=== PATIENT | female | born 1955 | race Caucasian/White ===

== ENCOUNTER 2023-02-05 09:49 | Emergency (ER) | payer OTHER ==
--- OUTSIDE RECORDS SUMMARY | 2023-02-05 09:55 | XMS REPORT | Continuity of Care Document ---
:1955 Author Organization [facility] t Address [address] [place] [address] [address] [place] [address] Care Team Providers Name Role Phone Dusty Sanches MD Primary Care Physician AMBERLY THOMPSON Attending Clinician Unavailable LAB90 Attending Clinician Unavailable RYLEY_Jeff Attending Clinician Unavailable Referred, Self Attending Clinician Unavailable Amberly Thompson MD Attending Clinician [phone] Angela Duque Attending Clinician Unavailable Valeri Admitting Clinician Unavailable Referred, Self Admitting Clinician Unavailable Angela Duque Admitting Clinician Unavailable Physician, No Primary or Family Admitting Clinician Unavaila ble Payers Payer Name Policy Type Policy Number Effective Date Expiration Date S cherelle [employer] CT PPO 5 [id number] 2021 00:00:00 [employer] (MEDICARE [id number] 2022 REPLACEMENT PPO) 00:00:00 Problems Condition Condition Condition Status Onset Resolution Last Treating Co mments Source Name Details Category Date Date Treatment Clinician Date Prediabete Prediabete Disease Active 2021-12 Essence sahu s 12-09 Seybold 00:00: - 00 Externa l Hyperlipid Hyperlipid Disease Active 2021-12 Essence corea emia 12-09 Seybold 00:00: - 00 Externa l Hypothyroi Hypothyroi Disease Active 2021-12 Essence montalvo dism dism 12-09 Seybold 00:00: - 00 Externa l Primary Primary Disease Active 2021-12 Emilia hypertensi hypertensi 12-09 Se ybold on on 00:00: - 00 Externa l 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 06-01 Se ybold 00:00: - 00 Externa l Alcohol Alcohol Disease Active Emilia abuse abuse 06-01 Seybold 00:00: - 00 Externa l Essential Essential Disease Active [facility] hypertensi hypertensi [facility]-10 [facility]: Hosp[facility] 00 l SOB SOB Disease Active [facility] (shortness (shortness 7-10 st of breath) of breath) 00:00: Ho spita 00 l Allergies, Adverse Reactions, Alerts Allergy Allergy Status Severity Reaction(s) Onset Inactive Treating Comm ents Source Name Type Date Date Clinician Amoxicil Propensi Active Hives Emilia monse ty to 4-27 Seybold adverse 00:00: - reaction 00 Externa s l Amoxicil Propensi Active [facility] monse ty to 7-10 [facility] adverse 00:00: Hospita reaction 00 l s to drug codeine DA Active [facility] [place] [facility] am[facility]il [facility] [place] [facility] codeine DA Active [facility] [place] [facility] amoxicil DA Active [facility] [place] [facility] Family History Family Member Diagnosis Comments Start Date Stop Date Source [facility] mother St[facility] Social History Social Habit Start Date Stop Date Quantity Comments Source History of Current smoker [facility] use [facility] Tobacco use and 2021-06-01 2021-06-01 Smokeless tobacco Ke davidey Seybold - exposure 00:00:00 00:00:00 non-user External Sex [birth year] [facility] 00:00:00 00:00:00 Hospital Smoking Status Start Date Stop Date Source Never smoked tobacco Emilia Seyb old - External Ex-smoker 2018-06-10 00:00:00 2018-06-10 00:00:[address] [facility] Medications Ordered Filled Start Stop Current Ordering Indication Dosage Frequency Signature Comments Components Source Medication Medication Date Date Medication? Clinician (SIG) Name Name PAM ALTMAN Yes Take by Esvin choi VINEGAR OR 3-06 mouth Seybold 13:36: - 59 Externa l Thiamine Yes 250mg Take 250 Kim ey HCl 3-06 mg by Seybold (Vitamin 13:36: mouth - B-1) 250 MG 59 daily Externa oral Tablet l Cyanocobala Yes 1000ug Take 1,000 Emilia min 3-06 mcg by Seybold (Vitamin 13:36: mouth - B-12) 1000 59 daily Externa MCG oral l Tablet Biotin Yes Take by Emilia [id number] MCG 3-06 mouth Seybold oral Tablet 13:36: - 59 Externa l Ascorbic Yes Take by Emilia Acid 3-06 mouth Seybold (Vitamin C) 13:36: - 500 MG oral 59 Externa Capsule l Cholecalcif Yes Take by Esvin choi victor manuel 3-06 mouth Seybold (Vitamin 13:36: - D-3) 25 MCG 59 Externa (1000 UT) l oral Capsule Probiotic Yes Take by Yvonne y Product 3-06 mouth Seybold (PROBIOTIC- 13:36: - 10 OR) 59 Externa l Zinc 50 MG Yes Take by Kim ey oral 3-06 mouth Seybold Capsule 13:36: - 59 Externa l Celecoxib 2022-0 Yes [id number] 200mg Take 1 Emilia (CeleBREX) 3-06 capsule Seybol d 200 MG oral 00:00: (200 mg - Capsule 00 total) by Externa mouth 2 l times daily Gabapentin 2022-0 Yes Emilia 300 MG oral 3-03 Seybold Capsule 00:00: - 00 Externa l Metformin 2022-0 Yes TAKE 1 Emilia HCl 500 MG 2-09 TABLET BY Seyb old oral Tablet 00:00: MOUTH - 00 TWICE A Externa DAY l Simvastatin 2022-0 Yes TAKE 1 Kim ey 20 MG oral 2-09 TABLET BY Seyb old Tablet 00:00: MOUTH - 00 EVERY DAY Externa l Losartan Yes TAKE 1 Emilia Potassium 2-09 TABLET BY Seybo ld (COZAAR) 50 00:00: MOUTH - MG oral 00 EVERY DAY Externa Tablet l Carvedilol Yes [id number] TAKE 1 K elsey 25 MG oral 1-25 TABLET BY Seyb old Tablet 00:00: MOUTH - 00 TWICE A Externa DAY l Famotidine Yes [id number] TAKE 1 Emilia 40 MG oral 1-25 TABLET BY Seyb old Tablet 00:00: MOUTH - 00 EVERY DAY Externa l Amlodipine Yes [id number] TAKE 1 K elsey Besylate 1-25 TABLET BY Seybol d 2.5 MG oral 00:00: MOUTH - Tablet 00 EVERY DAY Externa l Trazodone Yes [id number] TAKE 1 K elsey HCl 150 MG 1-25 TABLET BY Seyb old oral Tablet 00:00: MOUTH - 00 EVERY DAY Externa AT NIGHT l Clenpiq 2021-12 Yes USE Emilia 10-3.5-12 2-22 DIRECTED Seybol d MG-GM 00:00: BY YOUR - -GM/160ML 00 COLONOSCOP Exte rna oral Y PACKET l Solution INSTRUCTIO NS APPLE CIDER 2021-12 Yes Take by Esvin choi VINEGAR OR 2-20 mouth Seybold 11:23: - 27 Externa l Thiamine 2021-12 Yes 250mg Take 250 Kim ey HCl 2-20 mg by Seybold (Vitamin 11:23: mouth - B-1) 250 MG 27 daily Externa oral Tablet l Cyanocobala 2021-12 Yes 1000ug Take 1,000 Emilia min 2-20 mcg by Seybold (Vitamin 11:23: mouth - B-12) 1000 27 daily Externa MCG oral l Tablet Biotin 2021-12 Yes Take by Emilia [id number] MCG 2-20 mouth Seybold oral Tablet 11:23: - 27 Externa l Ascorbic 2021-12 Yes Take by Emilia Acid 2-20 mouth Seybold (Vitamin C) 11:23: - 500 MG oral 27 Externa Capsule l Cholecalcif 2021-12 Yes Take by Esvin choi victor manuel 2-20 mouth Seybold (Vitamin 11:23: - D-3) 25 MCG 27 Externa (1000 UT) l oral Capsule Probiotic 2021-12 Yes Take by Yvonne y Product 2-20 mouth Seybold (PROBIOTIC- 11:23: - 10 OR) 27 Externa l Zinc 50 MG 2021-12 Yes Take by Kim ey oral 2-20 mouth Seybold Capsule 11:23: - 27 Externa l methylPREDN 2021-12 Yes [id number] 1{judy} Take 1 judy Emilia ISolone 4 2-20 by mouth Seybol d MG oral 00:00: See Admin - Tablet 00 Instructio Externa Therapy ns Use as l Pack directed methylPREDN 2021-12 Yes [id number] 1{judy} Take 1 judy Emilia ISolone 4 2-20 by mouth Seybol d MG oral 00:00: See Admin - Tablet 00 Instructio Externa Therapy ns Use as l Pack directed Hyoscyamine 2021-12 Yes 1{tbl} Take 1-2 Emilia Sulfate 2-05 tablets by Seybol d 0.125 MG 00:00: mouth - oral Tablet 00 every 4 to Ex terna 6 hours as l needed Hyoscyamine 2021-12 Yes 1{tbl} Take 1-2 Emilia Sulfate 2-05 tablets by Seybol d 0.125 MG 00:00: mouth - oral Tablet 00 every 4 to Ex terna 6 hours as l needed APPLE CIDER 2021-12 Yes Take by Esvin choi VINEGAR OR 1-08 mouth Seybold 10:49: - 32 Externa l Thiamine 2021-12 Yes 250mg Take 250 Kim ey HCl 1-08 mg by ybold (Vitamin 10:49: mouth - B-1) 250 MG 32 daily Externa oral Tablet l Cyanocobala 2021-12 Yes 1000ug Take 1,000 Emilia min 1-08 mcg by Seybold (Vitamin 10:49: mouth - B-12) 1000 32 daily Externa MCG oral l Tablet Biotin 2021-12 Yes Take by Emilia [id number] MCG 1-08 mouth Seybold oral Tablet 10:49: - 32 Externa l Ascorbic 2021-12 Yes Take by Emilia Acid 1-08 mouth Seybold (Vitamin C) 10:49: - 500 MG oral 32 Externa Capsule l Cholecalcif 2021-12 Yes Take by Esvin choi victor manuel 1-08 mouth Seybold (Vitamin 10:49: - D-3) 25 MCG 32 Externa (1000 UT) l oral Capsule Probiotic 2021-12 Yes Take by Kelse y Product 12-09 mouth Seybold (PROBIOTIC- 10:49: - 10 OR) 32 Externa l Zinc 50 MG 2021-12 Yes Take by Kim ey oral 08 mouth Seybold Capsule 10:49: - 32 Externa l Escitalopra 2021-12 Yes [id number] TAKE 1 Emilia m Oxalate 0-23 TABLET BY Seybo ld 10 MG oral 00:00: MOUTH - Tablet 00 EVERY DAY Externa l Escitalopra 2021-12 Yes [id number] TAKE 1 Emilia m Oxalate 0-23 TABLET BY Seybo ld 10 MG oral 00:00: MOUTH - Tablet 00 EVERY DAY Externa l Escitalopra 2021-12 Yes [id number] TAKE 1 Emilia m Oxalate 0-23 TABLET BY Seybo ld 10 MG oral 00:00: MOUTH - Tablet 00 EVERY DAY Externa l Bupropion 0 Yes [id number] TAKE 1 K elsey HCL SR 200 7-21 TABLET BY Seyb old MG OR TB12 00:00: MOUTH - 00 EVERY DAY Externa l Bupropion 0 Yes [id number] TAKE 1 K elsey HCL SR 200 7-21 TABLET BY Seyb old MG OR TB12 00:00: MOUTH - 00 EVERY DAY Externa l Bupropion 0 Yes [id number] TAKE 1 K elsey HCL SR 200 7-21 TABLET BY Seyb old MG OR TB12 00:00: MOUTH - 00 EVERY DAY Externa l Levothyroxi 0 Yes 50ug Take 1 Kim ey ne Sodium 6-20 tablet (50 Seyb old 50 MCG oral 00:00: mcg total) - Tablet 00 by mouth Externa daily l Levothyroxi 0 Yes 50ug Take 1 Kim ey ne Sodium 6-20 tablet (50 Seyb old 50 MCG oral 00:00: mcg total) - Tablet 00 by mouth Externa daily l Levothyroxi Yes 50ug Take 1 Kim ey ne Sodium 6-20 tablet (50 Seyb old 50 MCG oral 00:00: mcg total) - Tablet 00 by mouth Externa daily l methylPREDN 0 Yes [id number] 1{judy} Take 1 judy Emilia ISolone 4 5-10 by mouth Seybol d MG oral 00:00: See Admin Tablet 00 Instructio Therapy ns Use as Pack directed methylPREDN 2021-0 2021- No [id number] 1{judy} Take 1 judy Emilia ISolone 4 5-10 11-08 by mouth Seybo ld MG oral 00:00: 00:00 See Admin - Tablet 00 :00 Instructio Externa Therapy ns Use as l Pack directed Trazodone 0 Yes [id number] TAKE 1 K elsey HCl 150 MG 4-18 TABLET BY Seyb old oral Tablet 00:00: MOUTH 00 EVERY DAY AT NIGHT Trazodone 2021-0 Yes [id number] TAKE 1 K elsey HCl 150 MG 4-18 TABLET BY Seyb old oral Tablet 00:00: MOUTH - 00 EVERY DAY Externa AT NIGHT l Trazodone 2021-0 Yes [id number] TAKE 1 K elsey HCl 150 MG 4-18 TABLET BY Seyb old oral Tablet 00:00: MOUTH - 00 EVERY DAY Externa AT NIGHT l Levothyroxi 0 Yes TAKE 1 Kim ey ne Sodium 3-25 TABLET BY Seybo ld 50 MCG oral 00:00: MOUTH Tablet 00 EVERY DAY Cetirizine 2021-0 2021- No 10mg Take 10 mg Emilia 10 MG oral 3-21 03-21 by mouth Seyb old Tablet 13:43: 00:00 daily 10 :00 Cetirizine 2021-0 Yes 10mg Take 10 mg K elsey 10 MG oral 2-24 by mouth Seybo ld Tablet 13:40: daily 28 Trazodone 2021-0 Yes [id number] 50mg Take 1 K elsey HCl 50 MG 2-24 tablet (50 Seyb old oral Tablet 00:00: mg total) 00 by mouth nightly Escitalopra 2021-0 Yes [id number] 10mg Take 1 Emilia m Oxalate 2-24 tablet (10 Seyb old 10 MG oral 00:00: mg total) Tablet 00 by mouth daily Escitalopra 2021-0 Yes [id number] 10mg Take 1 Emilia m Oxalate 2-24 tablet (10 Seyb old 10 MG oral 00:00: mg total) Tablet 00 by mouth daily Trazodone 0 Yes [id number] 50mg Take 1 K elsey HCl 50 MG 2-24 tablet (50 Seyb old oral Tablet 00:00: mg total) 00 by mouth nightly Escitalopra Yes [id number] 10mg Take 1 Emilia m Oxalate 2-24 tablet (10 Seyb old 10 MG oral 00:00: mg total) Tablet 00 by mouth daily Simvastatin 2021-0 Yes 20mg Take 1 Kim ey 20 MG oral 2-14 tablet (20 Sey bold Tablet 00:00: mg total) 00 by mouth daily Losartan 0 Yes 50mg Take 1 Emilia Potassium 2-14 tablet (50 Seyb old 50 MG oral 00:00: mg total) Tablet 00 by mouth daily Metformin 0 Yes 500mg Take 1 Kelse y HCl 500 MG 2-14 tablet Seybold oral Tablet 00:00: (500 mg 00 total) by mouth 2 times daily Simvastatin 2021-0 Yes 20mg Take 1 Kim ey 20 MG oral 2-14 tablet (20 Sey bold Tablet 00:00: mg total) 00 by mouth daily Losartan 0 Yes 50mg Take 1 Emilia Potassium 2-14 tablet (50 Seyb old 50 MG oral 00:00: mg total) Tablet 00 by mouth daily Metformin 2021-0 Yes 500mg Take 1 Kelse y HCl 500 MG 2-14 tablet Seybold oral Tablet 00:00: (500 mg 00 total) by mouth 2 times daily Simvastatin 2021-0 Yes 20mg Take 1 Kim ey 20 MG oral 2-14 tablet (20 Sey bold Tablet 00:00: mg total) - 00 by mouth Externa daily l Losartan 2021-0 Yes 50mg Take 1 Emilia Potassium 2-14 tablet (50 Seyb old 50 MG oral 00:00: mg total) - Tablet 00 by mouth Externa daily l Metformin 2021-0 Yes 500mg Take 1 Kelse y HCl 500 MG 2-14 tablet Seybold oral Tablet 00:00: (500 mg - 00 total) by Externa mouth 2 l times daily Simvastatin 2021-0 Yes 20mg Take 1 Kim ey 20 MG oral 2-14 tablet (20 Sey bold Tablet 00:00: mg total) - 00 by mouth Externa daily l Losartan 2021-0 Yes 50mg Take 1 Emilia Potassium 2-14 tablet (50 Seyb old 50 MG oral 00:00: mg total) - Tablet 00 by mouth Externa daily l Metformin Yes 500mg Take 1 Kelse y HCl 500 MG 2-14 tablet Seybold oral Tablet 00:00: (500 mg - 00 total) by Externa mouth 2 l times daily Simvastatin 0 Yes 20mg Take 1 Kim ey 20 MG oral 2-14 tablet (20 Sey bold Tablet 00:00: mg total) 00 by mouth daily Losartan Yes 50mg Take 1 Emilia Potassium 2-14 tablet (50 Seyb old 50 MG oral 00:00: mg total) Tablet 00 by mouth daily Metformin Yes 500mg Take 1 Kelse y HCl 500 MG 2-14 tablet Seybold oral Tablet 00:00: (500 mg 00 total) by mouth 2 times daily Cetirizine Yes 10mg Take 10 mg K elsey 10 MG oral 1-27 by mouth Seybo ld Tablet 13:39: daily 06 Escitalopra Yes [id number] 10mg Take 1 Emilia m Oxalate 1-27 tablet (10 Seyb old 10 MG oral 00:00: mg total) Tablet 00 by mouth daily Escitalopra 2021- No [id number] 10mg Take 1 Emilia m Oxalate 1-27 02-24 tablet (10 Sey bold 10 MG oral 00:00: 00:00 mg total) Tablet 00 :00 by mouth daily Amlodipine 0 Yes [id number] 2.5mg Take 1 Emilia Besylate 1-24 tablet Seybold 2.5 MG oral 00:00: (2.5 mg Tablet 00 total) by mouth daily Carvedilol Yes [id number] 25mg Take 1 K elsey 25 MG oral 1-24 tablet (25 Sey bold Tablet 00:00: mg total) 00 by mouth 2 times daily Famotidine Yes [id number] 40mg Take 1 Emilia 40 MG oral 1-24 tablet (40 Sey bold Tablet 00:00: mg total) 00 by mouth daily Amlodipine 0 Yes [id number] 2.5mg Take 1 Emilia Besylate 1-24 tablet Seybold 2.5 MG oral 00:00: (2.5 mg Tablet 00 total) by mouth daily Carvedilol 2021-0 Yes [id number] 25mg Take 1 K elsey 25 MG oral 1-24 tablet (25 Sey bold Tablet 00:00: mg total) 00 by mouth 2 times daily Famotidine 2021-0 Yes [id number] 40mg Take 1 Emilia 40 MG oral 1-24 tablet (40 Sey bold Tablet 00:00: mg total) 00 by mouth daily Amlodipine 2021-0 Yes [id number] 2.5mg Take 1 Emilia Besylate 1-24 tablet Seybold 2.5 MG oral 00:00: (2.5 mg - Tablet 00 total) by Externa mouth l daily Carvedilol 2021-0 Yes [id number] 25mg Take 1 K elsey 25 MG oral 1-24 tablet (25 Sey bold Tablet 00:00: mg total) - 00 by mouth 2 Externa times l daily Famotidine 2021-0 Yes [id number] 40mg Take 1 Emilia 40 MG oral 1-24 tablet (40 Sey bold Tablet 00:00: mg total) - 00 by mouth Externa daily l Amlodipine 2021-0 Yes [id number] 2.5mg Take 1 Emilia Besylate 1-24 tablet Seybold 2.5 MG oral 00:00: (2.5 mg - Tablet 00 total) by Externa mouth l daily Carvedilol 2021-0 Yes [id number] 25mg Take 1 K elsey 25 MG oral 1-24 tablet (25 Sey bold Tablet 00:00: mg total) - 00 by mouth 2 Externa times l daily Famotidine 2021-0 Yes [id number] 40mg Take 1 Emilia 40 MG oral 1-24 tablet (40 Sey bold Tablet 00:00: mg total) - 00 by mouth Externa daily l Amlodipine 2021-0 Yes [id number] 2.5mg Take 1 Emilia Besylate 1-24 tablet Seybold 2.5 MG oral 00:00: (2.5 mg Tablet 00 total) by mouth daily Carvedilol 2021-0 Yes [id number] 25mg Take 1 K elsey 25 MG oral 1-24 tablet (25 Sey bold Tablet 00:00: mg total) 00 by mouth 2 times daily Famotidine 2021-0 Yes [id number] 40mg Take 1 Emilia 40 MG oral 1-24 tablet (40 Sey bold Tablet 00:00: mg total) 00 by mouth daily Amlodipine 2-0 Yes [id number] 2.5mg Take 1 Emilia Besylate 1-24 tablet Seybold 2.5 MG oral 00:00: (2.5 mg Tablet 00 total) by mouth daily Carvedilol 2022-0 Yes [id number] 25mg Take 1 K elsey 25 MG oral 1-24 tablet (25 Sey bold Tablet 00:00: mg total) 00 by mouth 2 times daily Famotidine 2-0 Yes [id number] 40mg Take 1 Emilia 40 MG oral 1-24 tablet (40 Sey bold Tablet 00:00: mg total) 00 by mouth daily Paroxetine 2-0 2022- No [id number] 20mg Take 1 Emilia HCl 20 MG 1-24 -27 tablet (20 Sey bold oral Tablet 00:00: 00:00 mg total) 00 :00 by mouth daily hydrOXYzine 2022-0 Yes 25mg [id number] Take 1 Emilia HCl 25 MG 1-13 [id number] tablet (25 Seybold oral Tablet 00:00: 3D mg total) 00 by mouth 3 times daily as needed for itching hydrOXYzine 2022-0 Yes 25mg [id number] Take 1 Emilia HCl 25 MG 1-13 [id number] tablet (25 Seybold oral Tablet 00:00: 3D mg total) 00 by mouth 3 times daily as needed for itching hydrOXYzine 2022-0 Yes 25mg [id number] Take 1 Emilia HCl 25 MG 1-13 [id number] tablet (25 Seybold oral Tablet 00:00: 3D mg total) 00 by mouth 3 times daily as needed for itching hydrOXYzine 2022-0 Yes 25mg Q.[id number] Take 1 Emilia HCl 25 MG 1-13 [id number] tablet (25 Seybold oral Tablet 00:00: 3D mg total) 00 by mouth 3 times daily as needed for itching hydrOXYzine 2022-0 2022- No 25mg Q.[id number] Take 1 Emilia HCl 25 MG 1-13 11-08 [id number] tablet (25 Seybold oral Tablet 00:00: 00:00 3D mg total) - 00 :00 by mouth 3 Externa times l daily as needed for itching Levothyroxi Yes 50ug Take 1 Kim ey ne Sodium 1-07 tablet (50 Seyb old 50 MCG oral 00:00: mcg total) Tablet 00 by mouth daily Levothyroxi Yes 50ug Take 1 Kim ey ne Sodium 1-07 tablet (50 Seyb old 50 MCG oral 00:00: mcg total) Tablet 00 by mouth daily Levothyroxi Yes 50ug Take 1 Kim ey ne Sodium 1-07 tablet (50 Seyb old 50 MCG oral 00:00: mcg total) Tablet 00 by mouth daily Metoclopram 2020-12 Yes Emilia cayden HCl 10 2-21 Seybold MG oral 00:00: Tablet 00 Sutab 2020-12 Yes Emilia [id number] 2-21 Seybold 8 MG oral 00:00: Tablet 00 Metoclopram 2020-12- No Kelse y cayden HCl 10 2-21 02-24 Seybold MG oral 00:00: 00:00 Tablet 00 :00 Sutab 2020-12- No Emilia [id number] 2-21 02-24 Seybold 8 MG oral 00:00: 00:00 Tablet 00 :00 Bupropion Yes [id number] 200mg Take 1 Emilia HCL SR 200 7-01 tablet Seybold MG OR TB12 00:00: (200 mg 00 total) by mouth daily Naltrexone Yes [id number] 50mg Take 1 K elsey HCl 50 MG 7-01 tablet (50 Seyb old oral Tablet 00:00: mg total) 00 by mouth daily Bupropion Yes [id number] 200mg Take 1 Emilia HCL SR 200 7-01 tablet Seybold MG OR TB12 00:00: (200 mg 00 total) by mouth daily Naltrexone Yes [id number] 50mg Take 1 K elsey HCl 50 MG 7-01 tablet (50 Seyb old oral Tablet 00:00: mg total) 00 by mouth daily Bupropion Yes [id number] 200mg Take 1 Emilia HCL SR 200 7-01 tablet Seybold MG OR TB12 00:00: (200 mg 00 total) by mouth daily Naltrexone Yes [id number] 50mg Take 1 K elsey HCl 50 MG 7-01 tablet (50 Seyb old oral Tablet 00:00: mg total) 00 by mouth daily Bupropion Yes [id number] 200mg Take 1 Emilia HCL SR 200 7-01 tablet Seybold MG OR TB12 00:00: (200 mg 00 total) by mouth daily Naltrexone Yes [id number] 50mg Take 1 K elsey HCl 50 MG 7-01 tablet (50 Seyb old oral Tablet 00:00: mg total) 00 by mouth daily Naltrexone 2021- No [id number] 50mg Take 1 Emilia HCl 50 MG 7-01 11-08 tablet (50 Sey bold oral Tablet 00:00: 00:00 mg total) - 00 :00 by mouth Externa daily l Cetirizine Yes [id number] 5mg Take 1 Emilia HCl 5 MG 4-27 tablet (5 Seybol d oral 00:00: mg total) Chewable 00 by mouth Tablet daily Cetirizine 2021- No [id number] 5mg Take 1 Emilia HCl 5 MG 4-27 02-24 tablet (5 Seybo ld oral 00:00: 00:00 mg total) Chewable 00 :00 by mouth Tablet daily Pantoprazol Yes TAKE 1 Kim ey e Sodium 40 3-24 TABLET BY Sey bold MG oral 00:00: MOUTH Tablet 00 DAILY 30 Delayed MINUTES Response BEFORE BREAKFAST (EMPTY STOMACH) Pantoprazol Yes TAKE 1 Kim ey e Sodium 40 3-24 TABLET BY Sey bold MG oral 00:00: MOUTH Tablet 00 DAILY 30 Delayed MINUTES Response BEFORE BREAKFAST (EMPTY STOMACH) Pantoprazol Yes TAKE 1 Kim ey e Sodium 40 3-24 TABLET BY Sey bold MG oral 00:00: MOUTH Tablet 00 DAILY 30 Delayed MINUTES Response BEFORE BREAKFAST (EMPTY STOMACH) Pantoprazol Yes TAKE 1 Kim ey e Sodium 40 3-24 TABLET BY Sey bold MG oral 00:00: MOUTH - Tablet 00 DAILY 30 Externa Delayed MINUTES l Response BEFORE BREAKFAST (EMPTY STOMACH) Pantoprazol Yes TAKE 1 Kim ey e Sodium 40 3-24 TABLET BY Sey bold MG oral 00:00: MOUTH - Tablet 00 DAILY 30 Externa Delayed MINUTES l Response BEFORE BREAKFAST (EMPTY STOMACH) Pantoprazol Yes TAKE 1 Kim ey e Sodium 40 3-24 TABLET BY Sey bold MG oral 00:00: MOUTH - Tablet 00 DAILY 30 Externa Delayed MINUTES l Response BEFORE BREAKFAST (EMPTY STOMACH) Pantoprazol Yes TAKE 1 Kim ey e Sodium 40 3-24 TABLET BY Sey bold MG oral 00:00: MOUTH Tablet 00 DAILY 30 Delayed MINUTES Response BEFORE BREAKFAST (EMPTY STOMACH) Metformin Yes 1{tbl} Take 1 Kim ey HCl 500 MG 2-25 tablet by Seyb old oral Tablet 00:00: mouth 2 00 times daily Losartan Yes 50mg Take 50 mg Esvin sey Potassium 2-09 by mouth Seybol d 50 MG oral 00:00: daily Tablet 00 Simvastatin Yes 20mg Take 20 mg Emilia 20 MG oral 2-09 by mouth Seybo ld Tablet 00:00: daily 00 hydrOXYzine Yes [facility] (ATARAX) 25 7-08 st MG tablet 00:00: Hospita 00 l hydrOXYzine Yes [facility] (ATARAX) 25 7-08 st MG tablet 00:00: Hospita 00 l hydrOXYzine Yes [facility] (ATARAX) 25 7-08 st MG tablet 00:00: Hospita 00 l levothyroxi Yes 50ug QD Take 50 [facility] ne 7-[address] (SYNTHROID, 00:00: mouth Hospi ta LEVOXYL) 50 00 daily. l mcg tablet levothyroxi Yes 50ug QD Take 50 Met hodi ne 7-[address] (SYNTHROID, 00:00: mouth Hospi ta LEVOXYL) 50 00 daily. l mcg tablet levothyroxi Yes 50ug QD Take 50 Met [facility] ne 7-[address] (SYNTHROID, 00:00: mouth Hospi ta LEVOXYL) 50 00 daily. l mcg tablet losartan Yes 50mg QD Take 50 mg [facility]odi (COZAAR) 50 6-[address] MG tablet 00:00: daily. Hospit a l losartan Yes 50mg QD Take 50 mg [facility] (COZAAR) 50 6-[address] MG tablet 00:00: daily. Hospit a 00 l losartan 2018-0 Yes 50mg QD Take 50 mg [facility]odi (COZAAR) 50 6-[address] MG tablet 00:00: daily. Hospit a 00 l gabapentin 2018-0 Yes 600mg Q.[id number] Take 600 [facility] (NEURONTIN) 6-24 [id number] mg by s t 600 mg 00:00: 3D mouth 3 Hospita tablet 00 (three) l times a day. metFORMIN 2018-0 Yes 500mg Q.5D Take 500 [facility] (GLUCOPHAGE 6-[address] ) 500 mg 00:00: mouth 2 Hospit a tablet 00 (two) l times a day. gabapentin 2018-0 Yes 600mg Q.[id number] Take 600 [facility] (NEURONTIN) 6-24 [id number] mg by s t 600 mg 00:00: 3D mouth 3 Hospita tablet 00 (three) l times a day. metFORMIN 2018-0 Yes 500mg Q.5D Take 500 Met [facility] (GLUCOPHAGE 6-[address] ) 500 mg 00:00: mouth 2 Hospit a tablet 00 (two) l times a day. gabapentin 2018-0 Yes 600mg Q.[id number] Take 600 [facility] (NEURONTIN) 6-24 [id number] mg by s t 600 mg 00:00: 3D mouth 3 Hospita tablet 00 (three) l times a day. metFORMIN 2018-0 Yes 500mg Q.5D Take 500 Met [facility] (GLUCOPHAGE 6-[address] ) 500 mg 00:00: mouth 2 Hospit a tablet 00 (two) l times a day. amLODIPine 2018-0 Yes 2.5mg Q.5D Take 2.5 Me thodi (NORVASC) 6-[address] 2.5 mg 00:00: mouth 2 Hospita tablet 00 (two) l times a day. amLODIPine 2018-0 Yes 2.5mg Q.5D Take 2.5 Me [facility] (NORVASC) 6-[address] 2.5 mg 00:00: mouth 2 Hospita tablet 00 (two) l times a day. amLODIPine 2018-0 Yes 2.5mg Q.5D Take 2.5 Me thodi (NORVASC) 6-[address] 2.5 mg 00:00: mouth 2 Hospita tablet 00 (two) l times a day. phenazopyri 2018-0 Yes [facility] dine 05-08 st (PYRIDIUM) 00:00: Hospita 200 MG 00 l tablet phenazopyri 2018-0 Yes [facility] i dine 05-08 st (PYRIDIUM) 00:00: Hospita 200 MG 00 l tablet phenazopyri 2018-0 Yes [facility] i dine 05-08 st (PYRIDIUM) 00:00: Hospita 200 MG 00 l tablet pantoprazol 2017-0 Yes TAKE 1 Meth gerald e 5-[address] (PROTONIX) 00:00: MOUTH Hospit a 40 MG EC 00 DAILY 30 l tablet MINUTES BEFORE BREAKFAST (EMPTY STOMACH) pantoprazol 2018-0 Yes TAKE 1 Meth gerald e 5-[address] (PROTONIX) 00:00: MOUTH Hospit a 40 MG EC 00 DAILY 30 l tablet MINUTES BEFORE BREAKFAST (EMPTY STOMACH) pantoprazol 2017-0 Yes TAKE 1 Meth gerald e 5-[address] (PROTONIX) 00:00: MOUTH Hospit a 40 MG EC 00 DAILY 30 l tablet MINUTES BEFORE BREAKFAST (EMPTY STOMACH) naltrexone 2017-0 Yes 50mg QD Take 50 mg M ethodi (DEPADE) 50 5-[address] mg tablet 00:00: daily. Hospit a l naltrexone 2018-0 Yes 50mg QD Take 50 mg M ethodi (DEPADE) 50 5-[address] mg tablet 00:00: daily. Hospit a 00 l naltrexone 2018-0 Yes 50mg QD Take 50 mg M ethodi (DEPADE) 50 5-[address] mg tablet 00:00: daily. [facility] carvedilol 2017-0 Yes 25mg Q.5D Take 25 mg M ethodi (COREG) 25 5-[address] MG tablet 00:00: (two) [facility]osp[facility] 00 times a l day. famotidine 2018-0 Yes 40mg QD Take 40 mg M ethodi (PEPCID) 40 5-[address] MG tablet 00:00: daily. [facility] 00 l carvedilol 2018-0 Yes 25mg Q.5D Take 25 mg [facility]i (COREG) 25 5-[address] MG tablet 00:00: (two) Hospita 00 times a l day. famotidine 2018-0 Yes 40mg QD Take 40 mg M ethodi (PEPCID) 40 5-[address] MG tablet 00:00: daily. [facility] 00 l carvedilol 2018-0 Yes 25mg Q.5D Take 25 mg M ethodi (COREG) 25 5-[address] MG tablet 00:00: (two) Hospita 00 times a l day. famotidine 2018-0 Yes 40mg QD Take 40 mg M ethodi (PEPCID) 40 5-[address] MG tablet 00:00: daily. [facility] cetirizine 2018-0 Yes 10mg QD Take 10 mg M ethodi (ZyrTEC) 10 5-[address] MG tablet 00:00: daily. Hospit [facility] 00 l amitriptyli 2018-0 Yes 50mg QD Take 50 mg [facility] ne (ELAVIL) 5-[address] 50 MG 00:00: nightly as Hospit a tablet 00 needed. l cetirizine 2018-0 Yes 10mg QD Take 10 mg M ethodi (ZyrTEC) 10 5-[address] MG tablet 00:00: daily. [facility] amitriptyli 2018-0 Yes 50mg QD Take 50 mg [facility] (ELAVIL) 5-[address] 50 MG 00:00: nightly as Hospit a tablet 00 needed. l amitriptyli 2018-0 Yes 50mg QD Take 50 mg [facility] (ELAVIL) 5-[address] 50 MG 00:00: nightly as Hospit a tablet 00 needed. l cetirizine 2018-0 Yes 10mg QD Take 10 mg M ethodi (ZyrTEC) 10 5-[address] MG tablet 00:00: daily. Hospit [facility] 00 l buPROPion 2018-0 Yes 300mg QD Take 300 [facility] XL 5-[address] (WELLBUTRIN 00:00: mouth [facility]pi ta XL) 300 MG 00 daily. l 24 hr tablet buPROPion 2018-0 Yes 300mg QD Take 300 [facility] XL 5-[address] (WELLBUTRIN 00:00: mouth [facility]pi ta XL) 300 MG 00 daily. l 24 hr tablet buPROPion 2018-0 Yes 300mg QD Take 300 [facility] XL 5-[address] (WELLBUTRIN 00:00: mouth Hospi ta XL) 300 MG 00 daily. l 24 hr tablet PARoxetine Yes 20mg QD Take 20 mg M ethodi (PAXIL) 20 5-[address] MG tablet 00:00: daily. Hospit [facility] 00 l PARoxetine Yes 20mg QD Take 20 mg M ethodi (PAXIL) 20 5-[address] MG tablet 00:00: daily. Hospit [facility] 00 l PARoxetine Yes 20mg QD Take 20 mg M ethodi (PAXIL) 20 5-[address] MG tablet 00:00: daily. Hospit a 00 l Immunizations Ordered Immunization Filled Immunization Date Status Commen ts Source Name Name Influenza Virus 2022-10-09 Completed Emilia Se ybold Vaccine, 00:00:00 - External Quadrivalent, High Dose, Age 65 And Up Influenza Virus 2022-10-09 Completed Emilia Se ybold Vaccine, 00:00:00 - External Quadrivalent, High Dose, Age 65 And Up Influenza Virus 2022-10-09 Completed Emilia Se ybold Vaccine, 00:00:00 - External Quadrivalent, High Dose, Age 65 And Up Influenza Virus 2021-12-28 Completed Emilia Se ybold Vaccine, 00:00:00 Quadrivalent, High Dose, Age 65 And Up Influenza Virus 2021-12-28 Completed Emilia Se ybold Vaccine, 00:00:00 Quadrivalent, High Dose, Age 65 And Up Influenza Virus 2021-12-28 Completed Emilia Se ybold Vaccine, 00:00:00 - External Quadrivalent, High Dose, Age 65 And Up Influenza Virus 2021-12-28 Completed Emilia Se ybold Vaccine, 00:00:00 - External Quadrivalent, High Dose, Age 65 And Up Influenza Virus 2021-12-28 Completed Emilia Se ybold Vaccine, 00:00:00 - External Quadrivalent, High Dose, Age 65 And Up Influenza Virus 2021-12-28 Completed Emilia Se ybold Vaccine, 00:00:00 Quadrivalent, High Dose, Age 65 And Up Influenza Virus 2021-12-28 Completed Emilia Se ybold Vaccine, 00:00:00 Quadrivalent, High Dose, Age 65 And Up Pneumococcal Vaccine, 2020-11-17 Completed Esvin sey Seybold Polysaccharide 00:00:00 Pneumococcal Vaccine, 2020-11-17 Completed Esvin sey Seybold Polysaccharide 00:00:00 Pneumococcal Vaccine, 2020-11-17 Completed Esvin sey Seybold Polysaccharide 00:00:00 - External Pneumococcal Vaccine, 2020-11-17 Completed Esvin sey Seybold Polysaccharide 00:00:00 - External Pneumococcal Vaccine, 2020-11-17 Completed Esvin sey Seybold Polysaccharide 00:00:00 - External Pneumococcal Vaccine, 2020-11-17 Completed Esvin sey Seybold Polysaccharide 00:00:00 Pneumococcal Vaccine, 2020-11-17 Completed Esvin sey Seybold Polysaccharide 00:00:00 Influenza Virus 2020-02-12 Completed Emilia Se ybold Vaccine, age 6 months 00:00:00 and up Influenza Virus 2020-02-12 Completed Emilia Se ybold Vaccine, No Preserv, 00:00:00 age 6 months and up Influenza Virus 2020-02-12 Completed Emilia Se ybold Vaccine, age 6 months 00:00:00 and up Influenza Virus 2020-02-12 Completed Emilia Se ybold Vaccine, No Preserv, 00:00:00 age 6 months and up Influenza Virus 2020-02-12 Completed Emilia Se ybold Vaccine, age 6 months 00:00:00 - E xternal and up Influenza Virus 2020-02-12 Completed Emilia Se ybold Vaccine, No Preserv, 00:00:00 - Ex ternal age 6 months and up Influenza Virus 2020-02-12 Completed Emilia Se ybold Vaccine, age 6 months 00:00:00 - E xternal and up Influenza Virus 2020-02-12 Completed Emilia Se ybold Vaccine, No Preserv, 00:00:00 - Ex ternal age 6 months and up Influenza Virus 2020-02-12 Completed Emilia Se ybold Vaccine, age 6 months 00:00:00 - E xternal and up Influenza Virus 2020-02-12 Completed Emilia Se ybold Vaccine, No Preserv, 00:00:00 - Ex ternal age 6 months and up Influenza Virus 2020-02-12 Completed Emilia Se ybold Vaccine, age 6 months 00:00:00 and up Influenza Virus 2020-02-12 Completed Emilia Se ybold Vaccine, No Preserv, 00:00:00 age 6 months and up Influenza Virus 2020-02-12 Completed Emilia Se ybold Vaccine, age 6 months 00:00:00 and up Influenza Virus 2020-02-12 Completed Emilia Se ybold Vaccine, No Preserv, 00:00:00 age 6 months and up Shingles IM 2019-08-25 Completed Emilia Seybol d (Shingrix) 00:00:00 Shingles IM 2019-08-25 Completed Emilia Seybol d (Shingrix) 00:00:00 Shingles IM 2019-08-25 Completed Emilia Seybol d (Shingrix) 00:00:00 - External Shingles IM 2019-08-25 Completed Emilia Seybol d (Shingrix) 00:00:00 - External Shingles IM 2019-08-25 Completed Emilia Seybol d (Shingrix) 00:00:00 - External Shingles IM 2019-08-25 Completed Emilia Seybol d (Shingrix) 00:00:00 Shingles IM 2019-08-25 Completed Emilia Seybol d (Shingrix) 00:00:00 Shingles IM 2019-06-22 Completed Emilia Seybol d (Shingrix) 00:00:00 Shingles IM 2019-06-22 Completed Emilia Seybol d (Shingrix) 00:00:00 Shingles IM 2019-06-22 Completed Emilia Seybol d (Shingrix) 00:00:00 - External Shingles IM 2019-06-22 Completed Emilia Seybol d (Shingrix) 00:00:00 - External Shingles IM 2019-06-22 Completed Emilia Seybol d (Shingrix) 00:00:00 - External Shingles IM 2019-06-22 Completed Emilia Seybol d (Shingrix) 00:00:00 Shingles IM 2019-06-22 Completed Emilia Seybol d (Shingrix) 00:00:00 Influenza Virus 2018-08-18 Completed Emilia Se ybold Vaccine, age 6 months 00:00:00 and up Shingles SQ 2018-08-18 Completed Emilia Seybol d (Zostavax) 00:00:00 Influenza Virus 2018-08-18 Completed Emilia Se ybold Vaccine, age 6 months 00:00:00 and up Shingles SQ 2018-08-18 Completed Emilia Seybol d (Zostavax) 00:00:00 Influenza Virus 2018-08-18 Completed Emilia Se ybold Vaccine, age 6 months 00:00:00 - E xternal and up Shingles SQ 2018-08-18 Completed Emilia Seybol d (Zostavax) 00:00:00 - External Influenza Virus 2018-08-18 Completed Emilia Se ybold Vaccine, age 6 months 00:00:00 - E xternal and up Shingles SQ 2018-08-18 Completed Emilia Seybol d (Zostavax) 00:00:00 - External Influenza Virus 2018-08-18 Completed Emilia Se ybold Vaccine, age 6 months 00:00:00 - E xternal and up Shingles SQ 2018-08-18 Completed Emilia Seybol d (Zostavax) 00:00:00 - External Influenza Virus 2018-08-18 Completed Emilia Se ybold Vaccine, age 6 months 00:00:00 and up Shingles SQ 2018-08-18 Completed Emilia Seybol d (Zostavax) 00:00:00 Influenza Virus 2018-08-18 Completed Emilia Se ybold Vaccine, age 6 months 00:00:00 and up Shingles SQ 2018-08-18 Completed Emilia Seybol d (Zostavax) 00:00:00 Influenza Virus 2017-08-26 Completed Emilia Se ybold Vaccine, No Preserv, 00:00:00 age 6 months and up Influenza Virus 2017-08-26 Completed Emilia Se ybold Vaccine, No Preserv, 00:00:00 age 6 months and up Influenza Virus 2017-08-26 Completed Emilia Se ybold Vaccine, No Preserv, 00:00:00 - Ex ternal age 6 months and up Influenza Virus 2017-08-26 Completed Emilia Se ybold Vaccine, No Preserv, 00:00:00 - Ex ternal age 6 months and up Influenza Virus 2017-08-26 Completed Emilia Se ybold Vaccine, No Preserv, 00:00:00 - Ex ternal age 6 months and up Influenza Virus 2017-08-26 Completed Emilia Se ybold Vaccine, No Preserv, 00:00:00 age 6 months and up Influenza Virus 2017-08-26 Completed Emilia Se ybold Vaccine, No Preserv, 00:00:00 age 6 months and up Influenza Virus 2016-09-04 Completed Emilia Se ybold Vaccine, age 6 months 00:00:00 and up Influenza Virus 2016-09-04 Completed Emilia Se ybold Vaccine, age 6 months 00:00:00 and up Influenza Virus 2016-09-04 Completed Emilia Se ybold Vaccine, age 6 months 00:00:00 - E xternal and up Influenza Virus 2016-09-04 Completed Emilia Se ybold Vaccine, age 6 months 00:00:00 - E xternal and up Influenza Virus 2016-09-04 Completed Emilia Se ybold Vaccine, age 6 months 00:00:00 - E xternal and up Influenza Virus 2016-09-04 Completed Emilia Se ybold Vaccine, age 6 months 00:00:00 and up Influenza Virus 2016-09-04 Completed Emilia Se ybold Vaccine, age 6 months 00:00:00 and up Td- Tetanus & 2015-10-19 Completed Emilia Seyb old Diphtheria Vaccine 00:00:00 (age 7+ years) Td- Tetanus & 2015-10-19 Completed Emilia Seyb old Diphtheria Vaccine 00:00:00 (age 7+ years) Td- Tetanus & 2015-10-19 Completed Emilia Seyb old Diphtheria Vaccine 00:00:00 - Exte rnal (age 7+ years) Td- Tetanus & 2015-10-19 Completed Emilia Seyb old Diphtheria Vaccine 00:00:00 - Exte rnal (age 7+ years) Td- Tetanus & 2015-10-19 Completed Emilia Seyb old Diphtheria Vaccine 00:00:00 - Exte rnal (age 7+ years) Td- Tetanus & 2015-10-19 Completed Emilia Seyb old Diphtheria Vaccine 00:00:00 (age 7+ years) Td- Tetanus & 2015-10-19 Completed Emilia Seyb old Diphtheria Vaccine 00:00:00 (age 7+ years) Pneumococcal Vaccine, 2015-09-02 Completed Esvin sey Seybold Polysaccharide 00:00:00 Pneumococcal Vaccine, 2015-09-02 Completed Esvin sey Seybold Polysaccharide 00:00:00 Pneumococcal Vaccine, 2015-09-02 Completed Esvin sey Seybold Polysaccharide 00:00:00 - External Pneumococcal Vaccine, 2015-09-02 Completed Esvin sey Seybold Polysaccharide 00:00:00 - External Pneumococcal Vaccine, 2015-09-02 Completed Esvin sey Seybold Polysaccharide 00:00:00 - External Pneumococcal Vaccine, 2015-09-02 Completed Esvin sey Seybold Polysaccharide 00:00:00 Pneumococcal Vaccine, 2015-09-02 Completed Esvin sey Seybold Polysaccharide 00:00:00 Vital Signs Vital Name Observation Time Observation Value Comments Source Systolic blood 2023-02-04 19:34:00 124 mm[Hg] Emilia Seybold - pressure External Diastolic blood 2023-02-04 19:34:00 68 mm[Hg] Kelse y Seybold - pressure External Heart rate 2023-02-04 19:34:00 65 /min Emilia S eybold - External Body temperature 2023-02-04 19:34:00 37 Margareth Kim ey Seybold - External Respiratory rate 2023-02-04 19:34:00 14 /min Kim ey Seybold - External Body height 2023-02-04 19:34:00 167.6 cm Emilia S eybold - External Body weight 2023-02-04 19:34:00 69.4 kg Emilia S eybold - External BMI 2023-02-04 19:34:00 24.69 kg/m2 Emilia S eybold - External Systolic blood 2022-11-20 17:20:00 122 mm[Hg] Emilia Seybold - pressure External Diastolic blood 2022-11-20 17:20:00 68 mm[Hg] Kelse y Seybold - pressure External Heart rate 2022-11-20 17:20:00 66 /min Emilia S eybold - External Body temperature 2022-11-20 17:20:00 36.28 Margareth Kim ey Seybold - External Respiratory rate 2022-11-20 17:20:00 14 /min Kim ey Seybold - External Body height 2022-11-20 17:20:00 167.6 cm Emilia S eybold - External Body weight 2022-11-20 17:20:00 73.936 kg Emilia S eybold - External BMI 2022-11-20 17:20:00 26.31 kg/m2 Emilia S eybold - External Systolic blood 2022-10-09 16:41:00 140 mm[Hg] Emilia Seybold - pressure External Diastolic blood 2022-10-09 16:41:00 64 mm[Hg] Esvinse y Seybold - pressure External Heart rate 2022-10-09 16:41:00 74 /min Emilia S eybold - External Body temperature 2022-10-09 16:41:00 35.06 Margareth Kim ey Seybold - External Respiratory rate 2022-10-09 16:41:00 15 /min Kim ey Seybold - External Body height 2022-10-09 16:41:00 167.6 cm Emilia S eybold - External Body weight 2022-10-09 16:41:00 76.204 kg Emilia S eybold - External BMI 2022-10-09 16:41:00 27.12 kg/m2 Emilia S eybold - External Systolic blood 2022-04-10 15:33:00 125 mm[Hg] Emilia Seybold pressure Diastolic blood 2022-04-10 15:33:00 68 mm[Hg] Kelse y Seybold pressure Heart rate 2022-04-10 15:33:00 69 /min Emilia S eybold Body temperature 2022-04-10 15:33:00 37.06 Margareth Kim ey Seybold Respiratory rate 2022-04-10 15:33:00 14 /min Kim ey Seybold Body height 2022-04-10 15:33:00 167.6 cm Emilia S eybold Body weight 2022-04-10 15:33:00 85.821 kg Emilia S eybold BMI 2022-04-10 15:33:00 30.54 kg/m2 Emilia S eybold Systolic blood 2022-02-19 18:43:00 122 mm[Hg] Emilia Seybold pressure Diastolic blood 2022-02-19 18:43:00 67 mm[Hg] Kelse y Seybold pressure Heart rate 2022-02-19 18:43:00 75 /min Emilia S eybold Body temperature 2022-02-19 18:43:00 37 Margareth Kim ey Seybold Respiratory rate 2022-02-19 18:43:00 14 /min Kim ey Seybold Body height 2022-02-19 18:43:00 167.6 cm Emilia S eybold Body weight 2022-02-19 18:43:00 85.458 kg Emilia S eybold BMI 2022-02-19 18:43:00 30.41 kg/m2 Emilia S eybold Systolic blood 2022-01-25 19:35:00 124 mm[Hg] Emilia Seybold pressure Diastolic blood 2022-01-25 19:35:00 58 mm[Hg] Kelse y Seybold pressure Heart rate 2022-01-25 19:35:00 82 /min Emilia S eybold Body temperature 2022-01-25 19:35:00 36.28 Margareth Kim ey Seybold Respiratory rate 2022-01-25 19:35:00 16 /min Kim ey Seybold Body height 2022-01-25 19:35:00 167.6 cm Emilia S eybold Body weight 2022-01-25 19:35:00 87.998 kg Emilia S eybold BMI 2022-01-25 19:35:00 31.31 kg/m2 Emilia S eybold Systolic blood 2021-12-28 19:31:00 122 mm[Hg] Emilia Seybold pressure Diastolic blood 2021-12-28 19:31:00 68 mm[Hg] Kelse y Seybold pressure Heart rate 2021-12-28 19:31:00 93 /min Emilia S eybold Body temperature 2021-12-28 19:31:00 35.39 Margareth Kim ey Seybold Respiratory rate 2021-12-28 19:31:00 16 /min Kim ey Seybold Body height 2021-12-28 19:31:00 167.6 cm Emilia S eybold Body weight 2021-12-28 19:31:00 88.905 kg Emilia S eybold BMI 2021-12-28 19:31:00 31.64 kg/m2 Emilia S eybold Procedures This patient has no known procedures. Plan of Care Planned Activity Planned Date Details Comments Source Future Scheduled 2023-02-05 COVID-19 VACCINE (#1) [facility] Test 08:42:18 [code = COVID-19 VACCINE (#1)] Future Scheduled 2023-02-05 BREAST CANCER [facility] Test 08:42:18 SCREENING [code = BREAST CANCER SCREENING] Future Scheduled 2023-02-05 COLONOSCOPY SCREENING [facility] Test 08:42:18 [code = COLONOSCOPY SCREENING] Future Scheduled 2023-02-05 SHINGLES VACCINES (1 [facility] Test 08:42:18 of 2) [code = SHINGLES VACCINES (1 of 2)] Future Scheduled 2023-02-05 65+ [facility] 08:42:18 VACCINE (1 - PCV) [code = 65+ PNEUMOCOCCAL VACCINE (1 - PCV)] Future Scheduled 2023-02-05 [facility]INE [facility] 08:42:18 [code = INFLUENZA VACCINE] Future Scheduled 2022-08-24 HEPATITIS B VACCINES [facility] Test 12:33:46 (1 of 3 - 3-dose series) [code = HEPATITIS B VACCINES (1 of 3 - 3-dose series)] Future Scheduled 2022-08-24 COVID-19 VACCINE (#1) [facility] Test 12:33:46 [code = COVID-19 VACCINE (#1)] Future Scheduled 2022-08-24 BREAST CANCER [facility] Test 12:33:46 SCREENING [code = BREAST CANCER SCREENING] Future Scheduled 2022-08-24 COLONOSCOPY SCREENING [facility] Test 12:33:46 [code = COLONOSCOPY SCREENING] Future Scheduled 2022-08-24 SHINGLES VACCINES (1 [facility] Test 12:33:46 of 2) [code = SHINGLES VACCINES (1 of 2)] Future Scheduled 2022-08-24 65+ [facility] 12:33:46 VACCINE (1 - PCV) [code = 65+ PNEUMOCOCCAL VACCINE (1 - PCV)] Future Scheduled 2022-08-24 [facility] 12:33:46 [code = INFLUENZA VACCINE] Future Scheduled COVID-19 VACCINE (1) [facility] Test [code = COVID-19 VACCINE (1)] Future Scheduled BREAST CANCER [facility] Test SCREENING [code = BREAST CANCER SCREENING] Future Scheduled COLONOSCOPY SCREENING [facility] Test [code = COLONOSCOPY SCREENING] Future Scheduled SHINGLES VACCINES (#1) [facility] Test [code = SHINGLES VACCINES (#1)] Future Scheduled 65+ [facility]OCO[facility]AL [facility] Test VACCINE (1 of 1 - PPSV23) [code = 65+ PNEUMOCOCCAL VACCINE (1 of 1 - PPSV23)] Future Scheduled [facility]ZA [facility]INE [facility] [code = INFLUENZA VACCINE] Encounters Start End Encounter Admission Attending Care Care Encounter Source Date/Time Date/Time Type Type Clinicians Facility Department ID 2023-03-05 2023-03-05 Outpatient EMILIA THOMPSON [id number] Emilia 13:30:00 13:30:00 AMBERLY Seybol d 2023-02-19 2023-02-19 Outpatient EMILIA THOMPSON [id number] Emilia 13:30:00 13:30:00 AMBERLY Seybol d 2023-02-04 2023-02-04 Outpatient LAB90 EMILIA DOMINGUEZ [id number] Emilia 14:35:00 14:35:00 Seybol d 2023-02-04 2023-02-04 Outpatient EMILIA THOMPSON [id number] Emilia 13:30:00 13:30:00 AMBERLY Seybol d 2023-02-04 2023-02-04 Outpatient EMILIA THOMPSON [id number] Emilia 00:00:00 00:00:00 AMBERLY Seybol d 2023-01-29 2023-01-29 Outpatient GC_[facility]AWPR[facility] PRIV PRIV [id number] [facility] 00:00:00 00:00:00 _Shilpa [id number] Medica l 2023-01-10 2023-01-10 Outpatient EMILIA THOMPSON [id number] Emilia 00:00:00 00:00:00 AMBERLY Seybol d 2022-12-26 2022-12-26 Outpatient EMILIA THOMPSON [id number] Emilia 00:00:00 00:00:00 AMBERLY Seybol d 2022-11-20 2022-11-20 Outpatient LAB90 EMILIA DOMINGUEZ [id number] Emilia 12:00:00 12:00:00 Seybol d 2022-11-20 2022-11-20 Outpatient EMILIA THOMPSON [id number] Emilia 11:30:00 11:30:00 AMBERLY Seybol d 2022-11-06 2022-11-06 Outpatient EMILIA THOMPSON [id number] Emilia 11:15:00 11:15:00 AMBERLY Seybol d 2022-10-16 2022-10-16 Outpatient EMILIA DOMINGUEZ [id number] Emilia 11:00:00 11:00:00 Seybol d 2022-10-12 2022-10-12 Outpatient EMILIA THOMPSON [id number] Emilia 00:00:00 00:00:00 AMBERLY Seybol d 2022-10-09 2022-10-09 Outpatient LAB90 EMILIA DOMINGUEZ [id number] Emilia 11:55:00 11:55:00 Seybol d 2022-10-09 2022-10-09 Outpatient EMILIA THOMPSON [id number] Emilia 10:45:00 10:45:00 AMBERLY Seybol d 2022-09-19 2022-09-19 Outpatient EMILIA THOMPSON [id number] Emilia 00:00:00 00:00:00 AMBERLY Seybol d 2022-09-13 2022-09-13 Outpatient [facility], [facility] MONA [id number] [facility] 08:00:00 08:00:00 Self 42 [facility] 2022-06-20 2022-06-20 Outpatient LAB90 EMILIA DOMINGUEZ [id number] Emilia 10:30:00 10:30:00 Seybol d 2022-05-24 2022-05-24 Outpatient EMILIA THOMPSON [id number] Emilia 00:00:00 00:00:00 AMBERLY Seybol d 2022-05-24 2022-05-24 Outpatient EMILIA THOMPSON [id number] Emilia 00:00:00 00:00:00 AMBERLY Seybol d 2022-04-10 2022-04-10 Outpatient LAB90 EMILIA DOMINGUEZ [id number] Emilia 11:15:00 11:15:00 Seybol d 2022-04-10 2022-04-10 Office Grey Thompson [id number] Emilia 10:30:00 11:00:00 Visit Amberly Moralez [id number] Se ybbernardino Hunter [id number] 2022-04-10 2022-04-10 Outpatient EMILIA THOMPSON [id number] Emilia 00:00:00 00:00:00 AMBERLY Seybol d 2022-02-22 2022-02-22 Outpatient EMILIA THOMPSON [id number] Emilia 00:00:00 00:00:00 AMBERLY Seybol d 2022-02-21 2022-02-21 Outpatient EMILIA THOMPSON [id number] Emilia 00:00:00 00:00:00 AMBERLY Seybol d 2022-02-19 2022-02-19 Office Mateo Edmonds [id number] Emilia 13:45:00 14:00:00 Visit Amberly Moralez [id number] Se ybold Somogyi [id number] 2022-02-12 2022-02-12 Outpatient EMILIA THOMPSON [id number] Emilia 00:00:00 00:00:00 AMBERLY Seybol d 2022-01-27 2022-01-27 Outpatient EMILIA THOMPSON [id number] Emilia 00:00:00 00:00:00 AMBERLY Seybol d 2022-01-25 2022-01-25 Office Grey Thompson [id number] Emilia 13:30:00 13:45:00 Visit Amberly Moralez [id number] Se ybold Somogyi [id number] 2022-01-15 2022-01-15 Outpatient EMILIA THOMPSON [id number] Emilia 00:00:00 00:00:00 AMBERLY Seybol d 2021-12-28 2021-12-28 Office Grey Thompson [id number] Emilia 13:45:00 14:15:00 Visit Amberly Moralez [id number] Se ybold Somogyi [id number] 2021-12-25 2021-12-25 Outpatient EMILIA THOMPSON [id number] Emilia 00:00:00 00:00:00 AMBERLY Seybol d 2021-12-18 2021-12-18 Outpatient EMILIA THOMPSON [id number] Emilia 00:00:00 00:00:00 AMBERLY Seybol d 2021-12-14 2021-12-14 Outpatient EMILIA THOMPSON [id number] Emilia 00:00:00 00:00:00 AMBERLY Pinkybol elizabeth 2021-12-08 2021-12-08 Outpatient EMILIA THOMPSON [id number] Emilia 00:00:00 00:00:00 AMBERLY Gramajool elizabeth 2021-11-14 2021-11-14 Outpatient EMILIA THOMPSON [id number] Emilia 00:00:00 00:00:00 AMBERLY Roxol elizabeth 2021-09-05 2021-09-05 Outpatient CHALO BalbuenaPM MONA [id number] [facility] 12:00:00 12:00:00 Angela [id number] [facility] 2021-09-05 2021-09-05 [facility] [id number] [facility] 12:00:00 12:00:00 Angela 22 [facility] 2021-06-14 2021-06-14 Outpatient EMILIA THOMPSON [id number] Emilia 09:45:00 09:45:00 AMBERLY Roxol elizabeth 2020-08-02 2020-08-02 Outpatient ALEENA Duque HCAPM MONA [id number] [facility] 12:00:00 12:00:00 Angela [id number] [facility] Results This patient has no known results.
[2023-02-05] MEDS ORDERED: NA CHLORIDE 0.9% 500 ML ONE (10:22)
[2023-02-05] MEDS ORDERED: NA CHLORIDE 0.9% 1,000 ML ONE (10:22)
[2023-02-05 10:23] LABS: Absolute Lymphocytes (CBC) 1.7 K/uL (0.7-4.9); Hematocrit 30.4 % (36.0-45.0); Lymphocytes % 23.1 % (15.3-44.8); MCV 100.3 fL (80-100); MPV 7.7 fL (7.6-11.3); RBC Red Blood Cell Count 3.03 M/uL (3.86-4.86)
[2023-02-05 10:29] LABS: Protime INR 1.03
[2023-02-05 11:04] LABS: ALT/SGPT 13 U/L (13-56); AST/SGOT 10 U/L (15-37); Albumin 3.7 g/dL (3.4-5.0); Alkaline Phosphatase 32 U/L (45-117); BUN Blood Urea Nitrogen 25 mg/dL (7-18); Bicarbonate 36 mmol/L (21-32); Bilirubin Total 0.4 mg/dL (0.2-1.0); Glomerular Filtration Rate 50 ml/min (=/>90); Glucose Level 105 mg/dL (74-106); NT PRO-BNP 1328 pg/mL (<125); Potassium 3.9 mmol/L (3.5-5.1); Protein, Total 6.7 g/dL (6.4-8.2); Sodium Level 142 mmol/L (136-145); Troponin High Sensitivity 6.4 pg/mL (<58.9); Uric Acid 7.4 mg/dL (2.6-6.0)
[2023-02-05 11:09] LABS: Bilirubin Direct < 0.1 mg/dL (0-0.2)
[2023-02-05 11:11] LABS: Magnesium 1.4 mg/dL (1.6-2.4)
--- NOTE | 2023-02-05 11:19 | RAD REPORT ---
EXAM DESCRIPTION: CT - Stone Protocol - 02/05/2023 11:02 am CLINICAL HISTORY: Abdominal pain./flank pain COMPARISON: 2021 TECHNIQUE: Computed axial tomography of the abdomen pelvis was obtained without oral or IV contrast. Lack of IV and oral contrast limits evaluation of solid organs, appendix, bowel, and vessels. Stafford l reformatted images were obtained and reviewed. All CT scans are performed using dose optimization technique as appropriate and may include automated exposure control or mA/KV adjustment according to patient size. FINDINGS: A renal calculus is not seen. An ureteral calculus is not noted. A bladder calculus is not present. No hydronephrosis The liver, spleen, pancreas and adrenals appear grossly normal There is no evidence of diverticulitis. The appendix appears normal Small to moderate umbilical hernia contains fat Small bilateral inguinal hernia. Spondylosis lumbar spine IMPRESSION: Negative for a genitourinary calculus
[2023-02-05] MEDS ORDERED: MAGNESIUM SULFATE 1 gm IVPB 1 GM/100 ML BAG IV ONE (11:30)
--- NOTE | 2023-02-05 11:35 | RAD REPORT ---
EXAM DESCRIPTION: US - Renal Ultrasound-Complete - 02/05/2023 11:03 am CLINICAL HISTORY: Flank pain COMPARISON: None FINDINGS: The right kidney measures 9 cm with a mildly increased echotexture. The left kidney measures 9 cm with a mildly increased echotexture. Hydronephrosis is not seen. No gross abnormality of bladder IMPRESSION: Mildly increased renal echotexture may indicate parenchymal disease
--- NOTE | 2023-02-05 11:41 | RAD REPORT ---
EXAM DESCRIPTION: Laya Single View02/05/2023 11:20 am CLINICAL HISTORY: Cough COMPARISON: 2021 FINDINGS: The lungs appear clear of acute infiltrate. The heart is normal size IMPRESSION: No acute abnormalities displayed
[2023-02-05 12:25] LABS: Arterial Blood Carboxyhemoglob 1.3 % (0-1.5); Blood Gas Oxyhemoglobin 93.7 % (94-97); Blood O2 Saturation 96.5 % (92-98.5)
[2023-02-05] MEDS ORDERED: dexAMETHasone 10 MG/ML VIAL ONE (12:38)
--- NOTE | 2023-02-05 12:41 | RAD REPORT ---
EXAM DESCRIPTION: CT - Thoracic Spine W/o Cont - 02/05/2023 12:29 pm CLINICAL HISTORY: Radiculopathy. PAIN COMPARISON: Stone Protocol dated 02/05/2023 TECHNIQUE: Axial CT imaging through the thoracic spine was performed with coronal and sagittal re-fo rmatted images. All CT scans are performed using dose optimization technique as appropriate and may include automated exposure control or mA/KV adjustment according to patient size. FINDINGS: Vertebral body heights and disc spaces are maintained. An acute compression fracture is no t present. Mild diffuse disc thinning is present. Thoracic spine alignment is within normal limits. No paraspinal masses or hematoma. Intervertebral disc detail is inherently limited on CT without gross findings of canal compromise. IMPRESSION: No acute abnormality is identified. No aggressive marrow lesion or malalignment.
[2023-02-05 12:49] LABS: Urine Blood Negative (Negative); Urine Glucose Negative (Negative); Urine Protein Negative (Negative); Urine Specific Gravity 1.015 (1.005-1.030)
[2023-02-05 13:18] VITALS: BP 138/84; O2SAT 99
[2023-02-05 15:47] LABS: Urine Bacteria None Seen /HPF (<20); Urine Mucus Slight /HPF (None Seen); Urine RBC <5 /HPF (None Seen)
--- NOTE | 2023-02-05 17:31 | EKG ---
Test Date: 2023-02-05 Test Time: 11:35:47 Vp Integrity: GINETTE MEASUREMENT RESULTS: Intervals: Rate: 69 VA: 138 QRSD: 98 QT: 474 QTc: 507 Casey: P: 16 VA: 138 QRS: -12 T: 24 INTERPRETIVE STATEMENTS: Normal sinus rhythm Low voltage QRS Prolonged QT Abnormal ECG No previous ECG available for comparison Electronically Signed On 02-05-23 17:30:32 TRIM TECHNICIAN by Antolin Griffin
--- NOTE | 2023-02-22 14:13 | EDPHYS ---
Physician Documentation [facility] Name: Mayra Torres Age: 67 yrs Sex: Female : 1955 Arrival Date: 02/05/2023 Time: 09:52 Bed 15 Private MD: Олег Khalil HPI: 02/05 12:24 This 67 yrs old Female presents to ER via Ambulatory with complaints of ayse Abnormal Lab Results. 12:24 The patient presents with pain that is acute, and decreased range of motion. The ayse symptoms are located in the left scapular area and left subscapular area. Onset: The symptoms/episode began/occurred 3 week(s) ago. The pain does not radiate. Associated signs and symptoms: The patient has no apparent associated signs or symptoms. The problem was sustained from unknown cause. Modifying factors: The patient symptoms are alleviated by remaining still, rest, the patient symptoms are aggravated by any movement, bending. SENT FOR WORSENING RENAL FAILURE. Severity of symptoms: At their worst the symptoms were mild, in the emergency department the symptoms are unchanged. Onset: The symptoms/episode began/occurred 21 day(s) ago. Severity of symptoms: At their worst the symptoms were moderate in the emergency department the symptoms are unchanged. Historical: - Allergies: 10:08 Amoxicillin; iw - Home Meds: 10:09 amlodipine 2.5 mg tablet daily [Active]; bupropion HCl 200 mg Oral tablet, iw sustained-release 12 hr daily [Active]; carvedilol 25 mg oral tablet 2 times per day [Active]; escitalopram oxalate 10 mg oral tablet daily [Active]; famotidine 40 mg Oral tablet once [Active]; levothyroxine 50 mcg capsule daily [Active]; losartan 50 mg oral tablet daily [Active]; metformin 500 mg Oral tablet 2 times per day [Active]; pantoprazole 40 mg oral tablet, delayed release (enteric coated) daily [Active]; simvastatin 20 mg Oral tablet every evening [Active]; trazodone 150 mg Oral tablet every day at bedtime [Active]; - PSHx: 10:08 Tonsillectomy; hysterectomy; tubal ligation; prolapsed rectum; iw - Immunization history:: Adult Immunizations Client reports receiving the 2nd dose of the Covid vaccine, Flu vaccine is up to date. - Social history:: Smoking status: Patient/guardian denies using tobacco, the patient reports quitting approximately 20 years ago. - Family history:: not pertinent. ROS: 12:24 Constitutional: Negative for fever, chills, and weight loss, Eyes: Negative for injury, ayse pain, redness, and discharge, ENT: Negative for injury, pain, and discharge, Neck: Negative for injury, pain, and swelling, Cardiovascular: Negative for chest pain, palpitations, and edema, Respiratory: Negative for shortness of breath, cough, wheezing, and pleuritic chest pain, Abdomen/GI: Negative for abdominal pain, nausea, vomiting, diarrhea, and constipation, : Negative for injury, bleeding, discharge, and swelling, MS/Extremity: Negative for injury and deformity, Skin: Negative for injury, rash, and discoloration, Neuro: Negative for headache, weakness, numbness, tingling, and seizure, Psych: Negative for depression, anxiety, suicide ideation, homicidal ideation, and hallucinations, Allergy/Immunology: Negative for hives, rash, and allergies, Endocrine: Negative for neck swelling, polydipsia, polyuria, polyphagia, and marked weight changes, Hematologic/Lymphatic: Negative for swollen nodes, abnormal bleeding, and unusual bruising. 12:24 Back: Positive for decreased range of motion, pain at rest, pain with movement, of the left scapular area, right scapular area and thoracic area. Exam: 12:24 Constitutional: This is a well developed, well nourished patient who is awake, alert, ayse and in no acute distress. Head/Face: Normocephalic, atraumatic. Eyes: Pupils equal round and reactive to light, extra-ocular motions intact. Lids and lashes normal. Conjunctiva and sclera are non-icteric and not injected. Cornea within normal limits. Periorbital areas with no swelling, redness, or edema. ENT: Nares patent. No nasal discharge, no septal abnormalities noted. Tympanic membranes are normal and external auditory canals are clear. Oropharynx with no redness, swelling, or masses, exudates, or evidence of obstruction, uvula midline. Mucous membranes moist. Neck: Trachea midline, no thyromegaly or masses palpated, and no cervical lymphadenopathy. Supple, full range of motion without nuchal rigidity, or vertebral point tenderness. No Meningismus. Chest/axilla: Normal chest wall appearance and motion. Nontender with no deformity. No lesions are appreciated. Cardiovascular: Regular rate and rhythm with a normal S1 and S2. No gallops, murmurs, or rubs. Normal PMI, no JVD. No pulse deficits. Respiratory: Lungs have equal breath sounds bilaterally, clear to auscultation and percussion. No rales, rhonchi or wheezes noted. No increased work of breathing, no retractions or nasal flaring. Abdomen/GI: Soft, non-tender, with normal bowel sounds. No distension or tympany. No guarding or rebound. No evidence of tenderness throughout. Female : Normal external genitalia. Skin: Warm, dry with normal turgor. Normal color with no rashes, no lesions, and no evidence of cellulitis. MS/ Extremity: Pulses equal, no cyanosis. Neurovascular intact. Full, normal range of motion. Neuro: Awake and alert, GCS 15, oriented to person, place, time, and situation. Cranial nerves II-XII grossly intact. Motor strength 5/5 in all extremities. Sensory grossly intact. Cerebellar exam normal. Normal gait. Psych: Awake, alert, with orientation to person, place and time. Behavior, mood, and affect are within normal limits. 12:24 ECG was reviewed by the Attending Physician. 12:24 Back: pain, that is mild, ROM is painful, normal spinal alignment noted, CVA tenderness, is absent, vertebral tenderness, is not appreciated, muscle spasm, is appreciated in the left scapular area, left subscapular area and thoracic area. Vital Signs: 10:00 BP 159 / 71; Pulse 80; Resp 18; Pulse Ox 98% ; ko1 10:06 BP 159 / 71; Pulse 80; Resp 16; Pulse Ox 98% on R/A; Weight 66.68 kg; Height 5 ft. 4 iw in. ; Pain 0/10; 10:15 BP 143 / 86; Pulse 73; Resp 16; Pulse Ox 98% ; ko1 13:06 BP 138 / 84; Pulse 78; Resp 16; Pulse Ox 99% ; ko1 10:06 Body Mass Index 25.23 (66.68 kg, 162.56 cm) iw 10:06 Pain Scale: Adult iw MDM: 09:53 Patient medically screened. ayse 12:28 Differential diagnosis: chronic back pain, Fatigue Fracture Osteoarthritis Osteoporosis ayse ruptured disc, Scoliosis sprain, Ureterolithiasis. Data reviewed: vital signs, nurses notes, lab test result(s), EKG, radiologic studies, CT scan, plain films. Consideration of Admission/Observation Escalation of care including admission/observation considered. Management of patient was discussed with the following: Answering Service Telephone Operator: DR GOMEZ WILL REVIEW AND FOLLOW UP. I considered the following discharge prescriptions or medication management in the emergency department Medications were administered in the Emergency Department. See MAR. Test considered but Not performed: MRI: NO MRI RENAL, SPINE. 02/05 10:00 Order name: Basic Metabolic Panel [facility] 02/05 10:00 Order name: CBC with Diff [facility] 02/05 10:00 Order name: LFT's [facility] 02/05 10:00 Order name: Magnesium [facility] 02/05 10:00 Order name: NT PRO-BNP [facility] 02/05 10:00 Order name: PT-INR [facility] 02/05 10:00 Order name: Troponin HS [facility] 02/05 10:00 Order name: Uric Acid [facility] 02/05 10:27 Order name: CBC with Automated Diff; Complete Time: 11:11 EDME 02/05 10:29 Order name: Protime (+INR); Complete Time: 11:11 EDME 02/05 11:11 Order name: Basic Metabolic Panel; Complete Time: 11:11 EDME 02/05 11:11 Order name: Liver (Hepatic) Function; Complete Time: 11:11 EDME 02/05 11:11 Order name: Uric Acid; Complete Time: 11:11 EDME 02/05 11:11 Order name: Troponin High Sensitivity; Complete Time: 11:11 EDME 02/05 11:11 Order name: NT PRO-BNP; Complete Time: 11:11 [facility] 02/05 11:11 Order name: Magnesium; Complete Time: 11:11 EDME 02/05 11:55 Order name: ABG [facility] 02/05 12:49 Order name: Urine Dipstick-Ancillary [facility] 02/05 10:00 Order name: XRAY Chest (1 view) [facility] 02/05 10:00 Order name: CT Stone Protocol [facility] 02/05 10:00 Order name: US Rp Exam Complete [facility] 02/05 11:20 Order name: CT; Complete Time: 11:54 EDME 02/05 11:36 Order name: US; Complete Time: 11:54 EDME 02/05 11:42 Order name: RAD; Complete Time: 11:54 EDME 02/05 12:14 Order name: CT Thoracic Spine Wo Cont [facility] 02/05 12:42 Order name: CT EDMS 02/05 10:00 Order name: EKG; Complete Time: 10:02 [facility] 02/05 10:00 Order name: Cardiac monitoring; Complete Time: 10:12 [facility] 02/05 10:00 Order name: EKG - Nurse/Tech; Complete Time: 11:44 [facility] 02/05 10:00 Order name: IV Saline Lock; Complete Time: 10:12 [facility] 02/05 10:00 Order name: Labs collected and sent; Complete Time: 10:21 [facility] 02/05 10:00 Order name: O2 Per Protocol; Complete Time: 10:21 [facility] 02/05 10:00 Order name: O2 Sat Monitoring; Complete Time: 10:21 [facility] 02/05 10:00 Order name: Urine Dipstick-Ancillary (obtain specimen); Complete Time: 12:48 [facility] 02/05 10:01 Order name: Misc. Order: get POST VOID RESIDUAL; Complete Time: 12:52 [facility] EC:24 Rate is 69 beats/min. Rhythm is regular. QRS [place] is Normal. [place] interval is normal. QRS ayse interval is normal. QT interval is prolonged at 69 msec. No Q waves. T waves are Normal. No ST changes noted. Clinical impression: NSR w/ Non-specific ST/T Changes and No evidence of ischemia. Interpreted by me. Reviewed by me. Administered Medications: 11:06 Drug: NS 0.9% IV 500 ml Route: IV; Rate: bolus; Site: right antecubital; ko1 11:23 Drug: NS 0.9% IV 1000 ml Route: IV; Rate: 125 ml/hr; Site: right antecubital; ko1 11:23 Drug: Magnesium Sulfate IVPB 1 grams Route: IVPB; Infused Over: 1 hrs; Site: right ko1 antecubital; 12:30 Drug: Decadron - Dexamethasone IVP 6 mg Route: IVP; Site: right antecubital; ko1 Disposition Summary: 02/05/23 12:32 Discharge Ordered Location: Home ayse Problem: new ayse Symptoms: have improved ayse Condition: Stable ayse Diagnosis - Unspecified kidney failure - WORSENING ayse - Strain of muscle and tendon of back wall of thorax, initial encounter ayse Followup: ayse - With: Private Physician - When: 2 - 3 days - Reason: Recheck today's complaints, Continuance of care, Re-evaluation by your physician Followup: ayse - With: Ambrose García DO - When: 2 - 3 days - Reason: Recheck today's complaints, Continuance of care, Re-evaluation by your physician Followup: ayse - With: Krissy Reyes MD - When: 2 - 3 days - Reason: Recheck today's complaints, Continuance of care, Re-evaluation by your physician Followup: ayse - With: Cory Kapadia MD - When: 2 - 3 days - Reason: Recheck today's complaints, Re-evaluation by your physician Discharge Instructions: - Discharge Summary Sheet ayse - Muscle Strain ayse - Thoracic Strain ayse - Thoracic Strain, [id number] ayse - Acute Kidney Injury, Adult ayse - Muscle Strain, [id number] ayse - Chronic Kidney Disease, Adult, [id number] [facility] Forms: - Medication Reconciliation Form ayse - Thank You Letter ayse - Antibiotic Education [facility] - Prescription Opioid Use [facility] Prescriptions: - dexamethasone 2 mg Oral tablet - take 1 tablet by ORAL route every 12 hours; 8 tablet; Refills: 0, Product [facility] Selection Permitted - Tylenol 325 mg Oral Tablet - take 2 tablets by ORAL route every 6 hours as needed; 100 tablet; Refills: 0, [facility] Product Selection Permitted - Cyclobenzaprine 5 mg Oral Tablet - take 1 tablet by ORAL route 3 times per day As needed; 15 tablet; Refills: 0, [facility] Product Selection Permitted Signatures: Dispatcher [employer] Олег Tubbs MD MD cha Williams, Irene, RN RN iw Oliver, Kathy, RN RN ko1 Corrections: (The following items were deleted from the chart) 11:43 10:03 Urine Microscopic+U.LAB.BRZ ordered. KENNETHME ROBBI
--- NOTE | 2023-02-22 14:13 | ER ---
Nurse's Notes [facility] Name: Mayra Torres Age: 67 yrs Sex: Female : 1955 Arrival Date: 02/05/2023 Time: 09:52 Bed 15 Private MD: Diagnosis: Unspecified kidney failure-WORSENING;Strain of muscle and tendon of back wall of thorax, initial encounter Presentation: 02/05 10:06 Chief complaint: Patient states: was sent by Dr. Montgomery for worsening kidney function. iw Coronavirus screen: At this time, the client does not indicate any symptoms associated with coronavirus-19. Ebola Screen: Patient negative for fever greater than or equal to 101.5 degrees Fahrenheit, and additional compatible Ebola Virus Disease symptoms Patient denies exposure to infectious person. Patient denies travel to an Ebola-affected area in the 21 days before illness onset. No symptoms or risks identified at this time. Initial Sepsis Screen: Does the patient meet any 2 criteria? No. Patient's initial sepsis screen is negative. Does the patient have a suspected source of infection?. Risk Assessment: Do you want to hurt yourself or someone else? Patient reports no desire to harm self or others. Onset of symptoms was February 05, 2023. 10:06 Method Of Arrival: Ambulatory iw 10:06 Acuity: BELEM 3 iw Historical: - Allergies: 10:08 Amoxicillin; iw - Home Meds: 10:09 amlodipine 2.5 mg tablet daily [Active]; bupropion HCl 200 mg Oral tablet, iw sustained-release 12 hr daily [Active]; carvedilol 25 mg oral tablet 2 times per day [Active]; escitalopram oxalate 10 mg oral tablet daily [Active]; famotidine 40 mg Oral tablet once [Active]; levothyroxine 50 mcg capsule daily [Active]; losartan 50 mg oral tablet daily [Active]; metformin 500 mg Oral tablet 2 times per day [Active]; pantoprazole 40 mg oral tablet, delayed release (enteric coated) daily [Active]; simvastatin 20 mg Oral tablet every evening [Active]; trazodone 150 mg Oral tablet every day at bedtime [Active]; - PSHx: 10:08 Tonsillectomy; hysterectomy; tubal ligation; prolapsed rectum; iw - Immunization history:: Adult Immunizations Client reports receiving the 2nd dose of the Covid vaccine, Flu vaccine is up to date. - Social history:: Smoking status: Patient/guardian denies using tobacco, the patient reports quitting approximately 20 years ago. - Family history:: not pertinent. Screenin:[address] [facility] ED Fall Risk Assessment (Adult) History of falling in the last 3 months, ko1 including since admission No falls in past 3 months (0 pts) Confusion or Disorientation No (0 pts) Intoxicated or Sedated No (0 pts) Impaired Gait No (0 pts) Mobility Assist Device Used No (0 pt) Altered Elimination No (0 pt) Score/Fall Risk Level 0 - 2 = Low Risk Oriented to surroundings, Maintained a safe environment, Educated pt \T\ family on fall prevention, incl call for assistance when getting out of bed, Assessed \T\ reinforced patient's understanding of fall precautions, Provided non-skid footwear, Hourly rounding (assess needs \T\ fall precautionary measures) done, Used ambulatory aids as needed (educated on \T\ assisted with), Used gait belt as appropriate. Abuse screen: Denies threats or abuse. Denies injuries from another. Nutritional screening: No deficits noted. Tuberculosis screening: No symptoms or risk factors identified. Assessment: 10:20 General: Appears in no apparent distress. comfortable, Behavior is calm, cooperative, ko1 appropriate for age. Pain: Denies pain. Neuro: No deficits noted. Cardiovascular: No deficits noted. Respiratory: No deficits noted. GI: No deficits noted. : Reports sent over for worsening kidney function. EENT: No deficits noted. Derm: No deficits noted. Musculoskeletal: No deficits noted. 12:54 Reassessment: post void volume, 43 mL. Robert RHOADES, notified. ko1 13:06 Reassessment: No changes from previously documented assessment. Patient and/or family ko1 updated on plan of care and expected duration. Pain level reassessed. Patient is alert, oriented x 3, equal unlabored respirations, skin warm/dry/pink. Patient states feeling better. Patient states symptoms have improved. Vital Signs: 10:00 BP 159 / 71; Pulse 80; Resp 18; Pulse Ox 98% ; ko1 10:06 BP 159 / 71; Pulse 80; Resp 16; Pulse Ox 98% on R/A; Weight 66.68 kg; Height 5 ft. 4 iw in. ; Pain 0/10; 10:15 BP 143 / 86; Pulse 73; Resp 16; Pulse Ox 98% ; ko1 13:06 BP 138 / 84; Pulse 78; Resp 16; Pulse Ox 99% ; ko1 10:06 Body Mass Index 25.23 (66.68 kg, 162.56 cm) iw 10:06 Pain Scale: Adult iw ED Course: 09:52 Patient arrived in ED. rg4 09:53 Олег Jones MD is Attending Physician. ayse 10:02 Baylee Gonzalez, MOIZ is Primary Nurse. ko1 10:08 Triage completed. iw 10:09 Arm band placed on. iw 10:15 Patient has correct armband on for positive identification. Placed in gown. Bed in low ko1 position. Call light in reach. Side rails up X 1. Client placed on continuous cardiac and pulse oximetry monitoring. NIBP monitoring applied. guide setter on. 10:15 Inserted saline lock: 20 gauge in right antecubital area, using aseptic technique. ko1 Blood collected. 10:21 Basic Metabolic Panel Sent. ko1 10:21 CBC with Diff Sent. ko1 10:21 LFT's Sent. ko1 10:21 Magnesium Sent. ko1 10:21 NT PRO-BNP Sent. ko1 10:21 PT-INR Sent. ko1 10:21 Troponin HS Sent. ko1 11:44 Uric Acid Sent. ko1 12:27 ABG Sent. ko1 12:31 Ambrose García DO is Referral Physician. ayse 12:39 Krissy Reyes MD is Referral Physician. ayse 12:39 Cory Kapadia MD is Referral Physician. ayse 13:07 No provider procedures requiring assistance completed. IV discontinued, intact, ko1 bleeding controlled, No redness/swelling at site. Pressure dressing applied. Administered Medications: 11:06 Drug: NS 0.9% IV 500 ml Route: IV; Rate: bolus; Site: right antecubital; ko1 11:23 Drug: NS 0.9% IV 1000 ml Route: IV; Rate: 125 ml/hr; Site: right antecubital; ko1 11:23 Drug: Magnesium Sulfate IVPB 1 grams Route: IVPB; Infused Over: 1 hrs; Site: right ko1 antecubital; 12:30 Drug: Decadron - Dexamethasone IVP 6 mg Route: IVP; Site: right antecubital; ko1 Medication: 10:15 VIS not applicable for this client. ko1 Outcome: 12:32 Discharge ordered by . ayse 13:07 Discharged to home ambulatory. ko1 13:07 Condition: stable 13:07 Discharge instructions given to patient, Instructed on discharge instructions, follow up and referral plans. Demonstrated understanding of instructions, follow-up care, medications, Prescriptions given X 3. 13:08 Patient left the ED. ko1 Signatures: Олег Jones MD MD cha Williams, Irene, Vi Garcia RN 4 Baylee Gonzalez RN RN ko1
== END 2023-02-05 13:08 | disposition home or self-care (01) ==
LOC: ER 09:49
DX: N19 Unspecified kidney failure (principal); S29.012A Strain of muscle and tendon of back wall of thorax, initial encounter; Z88.1 Allergy status to other antibiotic agents
CPT/HCPCS: 93005; 85025; 80048; 36415; 83735; 85610; 80076; 84550; 84484; 83880; 72128; 76377; 74176; 71045; 76770; 82805; 96375; 96374; 99284; J3475; J1100; J7040; J7030; 81003; 81015